=== PATIENT | female | born 2005 | race Two or more races ===

== ENCOUNTER 2024-03-14 15:23 | Emergency (ER) | payer MEDICAID, SELFPAY ==
[2024-03-14] VITALS (17 sets, daily range): BP systolic 103–127; BP diastolic 53–72; PULSE 88–120; RESP 13–21; TEMP 36.6–37.3; O2SAT 99–100; BMI 36.6
--- NOTE | 2024-03-14 15:41 | XR_ITS ---
Examination: Pelvic ultrasound, transabdominal, complete Technique: Transabdominal ultrasound of the pelvis performed using grayscale imaging Date and time of exam: March 14, 2024 1610 hrs. Indications: Vaginal bleeding beginning 3 months ago with anemia Findings: Uterus 6.9 x 4.4 x 6.4 cm No uterine mass or intrauterine gestation Endometrial stripe 17 mm Right ovary 3.3 x 2.0 x 2.9 cm arterial flow Left ovary 4.0 x 2.7 x 3.0 cm arterial flow Impression: Negative examination
--- NOTE | 2024-03-14 15:43 | PD.EDRECHK ---
ED Recheck Abnl Lab Rx-RME/HPI General Chief Complaint: Recheck/Abnormal Lab/Rx Stated Complaint: LOW HGB NEEDS TRANSFUSION Time Seen by Provider: 03/14/24 15:26 Arrival date/time: 03/14/24 15:23 RME / HPI RME / HPI narrative: 18-year-old female patient with no significant medical history, except for menometrorrhagia, and anemia, was sent to us by PCP for evaluation regarding severe anemia. Apparently patient has been having bleeding since December 28, saw her PCP and was given medications which according to her is not working. Went back again last Saturday, and was given Provera which the patient took the second dose this morning. Bleeding is now getting less. Patient denies any pelvic pain or abdominal pain. Patient complained of easy fatigability, and dizziness on sudden positional change and exertion. No medication was taken prior to arrival for anemia. Patient was told that her hemoglobin last Saturday was 4.8. Related Data Previous Rx's ?Medication ?Instructions ?Recorded ferrous sulfate 324 mg (65 mg 324 mg PO TID #90 tabs 03/14/24 iron) tablet,delayed release Allergies Allergy/AdvReac Type Severity Reaction Status Date / Time No Known Allergies Allergy Verified 03/14/24 15:25 Review of Systems Review of Systems Narrative Review of Systems: Review of system reviewed and within normal limits except mentioned in HPI ED Exam Narrative Physical exam: VITAL SIGNS: Reviewed. GENERAL APPEARANCE: Alert and interactive, follows commands, no acute distress, HEAD AND FACE: Non-traumatic. ENT: PERRL, pale conjunctiva, eyelid no trauma, Mucous membrane moist. NECK: Supple, nontender, no nuchal rigidity. CHEST: No tenderness, no crepitus, no paradoxical movement, no retractions. LUNGS: Clear, well ventilated, symmetric, no rales, no wheezing, no ronchi, no stridor, good breath sounds bilaterally. HEART: Regular rate, regular rhythm, no murmur, no gallops. ABDOMEN: Soft, positive bowel sounds, nondistended, no guarding, nontender, no rebound, no masses, RECTAL: Deferred. GENITAL: Deferred. NEUROLOGICAL: Gross motor function intact sensory function intact, Appropriate for age. MUSCULOSKELETAL: low back nontender, full range of motion. EXTREMITIES: Nontender, full range of motion. SKIN: Color pale, dry, no rash, no lacerations, no abrasions, no contusions. LYMPHATICS: Deferred. Course Quality Measures none Orders Category Date Time Status Insert IV NOW Care 03/14/24 16:09 Active Transfuse,blood/blood products ONCE Care 03/14/24 15:41 Active US pelvic complete Stat Exams 03/14/24 15:41 Completed CBC [CBC] Stat Lab 03/14/24 15:55 Completed CMP [Comprehensive Metabolic Panel] Stat Lab 03/14/24 15:55 Completed HCG Qualitative,Urine Stat Lab 03/14/24 17:52 Completed PTT [Partial Thromboplastin Time] Stat Lab 03/14/24 16:38 Completed Path Review Blood Smear Stat Lab 03/14/24 15:55 Completed Type and Screen Stat Lab 03/14/24 15:55 Results UA, C/S IF [Urinalysis, C/S if Indicated] Stat Lab 03/14/24 17:52 Completed prbc [Red Blood Cells] Stat Lab 03/14/24 15:55 Results Acetaminophen Tab [Tylenol ES Tab] Med 03/14/24 20:14 Discontinued 1,000 mg PO X1 ONE Vital Signs Vital signs: Vital Signs Temperature 98.5 F 03/14/24 15:36 Pulse Rate 120 H 03/14/24 15:36 Respiratory Rate 18 03/14/24 15:36 Blood Pressure 115/72 03/14/24 15:36 Pulse Oximetry (%) 99 03/14/24 15:36 Oxygen Delivery Method Room Air 03/14/24 15:36 Recheck / Abnormal Lab / Rx MDM Narrative MDM Narrative:: 18-year-old female patient with no significant medical history, except for menometrorrhagia, and anemia, was sent to us by PCP for evaluation regarding severe anemia. Apparently patient has been having bleeding since December 28, saw her PCP and was given medications which according to her is not working. Went back again last Saturday, and was given Provera which the patient took the second dose this morning. Bleeding is now getting less. Patient denies any pelvic pain or abdominal pain. Patient complained of easy fatigability, and dizziness on sudden positional change and exertion. No medication was taken prior to arrival for anemia. Patient was told that her hemoglobin last Saturday was 4.8. Patient's hemoglobin today was noted to be 4.6, hematocrit of 17.2. Patient received 3 units of packed RBC, tolerating the procedure well. Currently patient is denying any complaints. Patient appears nontoxic and hemodynamically stable. Patient discharged home and instructed to follow-up with primary care provider in 24 to 48 hours. Instructed to return to the emergency department immediately if worsening of symptoms Patient data External records reviewed:: None Clinical information provided by:: patient and family Social determinants that could affect healthcare access:: none Patient has the following chronic illnesses:: Menometrorrhagia, anemia How is presenting disease/condition affected by chronic disease/condition?: exacerbated by Evaluation data The following diagnostics were reviewed and interpreted by me:: lab results Lab and/or radiology exams considered but not ordered:: None Interpretation Summary: Hemoglobin was noted to be 4.6, hematocrit of 17.2 urinalysis no UTI. Ultrasound of the pelvis is negative for any acute pathology Medications / Prescriptions Medications or Prescriptions considered but not ordered:: None Medication administrations:: Medication Administration History Discontinued Medications Acetaminophen (Acetaminophen 500 Mg Tablet) 1,000 mg PO X1 ONE Stop: 03/14/24 20:15 Last Admin: 03/14/24 20:17 Dose: 1,000 mg Documented By: KG Blood transfusion x 3 bags with no complication noted. Consultations Consultation(s) initiated? (list below): No Diagnosis Recheck Differential Diagnosis: other (Anemia, severe anemia, menometrorrhagia) Most likely diagnosis given after review of the tests above:: Severe anemia, menometrorrhagia Admission Indicated Admission indicated?: not indicated Explain why admission is indicated or not indicated:: Stable for discharge Admission Request Was there a request for admission?: No Disposition Plan Disposition Plan: Discharge Discharge Attestation Discharge Attestation: The patient and all family members were given an opportunity to ask questions and understood the discharge instructions. Discharge instructions specifically effects, indications for sooner follow up or return to the emergency department, and the expected course of current diagnosis. Patient condition: Stable Discharge Plan Plan Patient Disposition: HOME (Self Care) Disposition Comment: stable Prescriptions/Referrals Prescriptions/Med Rec: New ferrous sulfate 324 mg (65 mg iron) tablet,delayed release (DR/EC) 324 mg PO TID Qty: 90 0RF Referrals: Gutierrez Chase MD [Primary Care Provider] - In 1 week Problem List Clinical Impression: Severe anemia, Menometrorrhagia Patient/Caregiver Discharge Instructions Discharge Activity: activity as tolerated Education Materials: Anemia, Iron Supplements Additional Instructions: Thank you for the opportunity for serving you today. You are stable for discharged . You are advised to: Follow-up with your PCP in 1 to 2 days Return to ED for worsening of symptoms Increase oral fluids Take medication as prescribed Print Language: Mauritanian Stand Alone Forms: Veda Award Info., Patient Portal Info Letter PA/ROXI Supervising Physician PA/ROXI Supervising Physician: MD Betzaida
[2024-03-14 16:07] LABS: Basophils # (Auto) 0.1 Thou/mm3 (0.0-0.2); Basophils % (Auto) 1 % (0-2.5); Eosinophils # (Auto) 0.1 Thou/mm3 (0.0-0.5); Eosinophils % (Auto) 1 % (0-10); Immature Granulocytes % (Auto) 1 % (0-0); Immature Granulocytes Auto 0.07 Thou/mm3 (0.00-0.00); Lymphocytes # (Auto) 2.9 Thou/mm3 (1.0-4.8); Lymphocytes % (Auto) 33 % (10-50); Mean Corpuscular HGB Conc 26.7 g/dl (31.0-37.0); Mean Corpuscular Hemoglobin 15.6 pg (25.0-35.0); Mean Corpuscular Volume 58 fL (80-100); Monocytes # (Auto) 0.5 Thou/mm3 (0.0-0.8); Monocytes % (Auto) 6 % (0-12); Neutrophils # (Auto) 5.3 Thou/mm3 (1.8-7.7); Neutrophils % (Auto) 59 % (37-80); Nucleated Red Blood Cell # 0.11 Thou/mm3 (0.00-0.00); Nucleated Red Blood Cell % 1 /100 WBC (0); Platelet Count 358 Thou/mm3 (140-440); RDW Standard Deviation 40.3 fL (36.4-46.3); Red Blood Count 2.95 Miln/mm3 (4.00-5.20)
--- NOTE | 2024-03-14 16:10 | PC.NURSE ---
ultrasound at bedside
[2024-03-14 16:39] LABS: Anion Gap 9 (7-16); Aspartate Amino Transferase 26 U/L (0-34); BUN/Creatinine Ratio 11 Ratio (12-20); Bilirubin,Total 0.5 mg/dL (0.3-1.2); Blood Urea Nitrogen 10 mg/dL (9-23); Calcium 9.2 mg/dL (8.3-10.6); Chloride 104 mMol/L (98-107); Creatinine (Component) 0.9 mg/dL (0.6-1.3); Estimated Creatinine Clearance 116.7 mL/min (>60); Glucose 102 mg/dL (74-106); Osmolality,Calculated 270 (275-295); Potassium 3.8 mMol/L (3.4-5.1); Sodium 136 mMol/L (136-145); eGFR > 60 See Note
[2024-03-14 16:40] LABS: Alanine Aminotransferase < 7 U/L (10-49); Albumin, Serum 4.7 gm/dL (3.5-5.0); Albumin/Globulin Ratio 1.6 (1.2-2.2); Alkaline Phosphatase 90 U/L (46-116); Calcium (Corrected) 9.2 mg/dL (8.5-10.1); Total Protein 7.7 gm/dL (5.7-8.2)
--- NOTE | 2024-03-14 17:10 | PC.NURSE ---
PT CAME IN WITH C/O LOW HBG. PT STATES THAT SHE HAS HAD VAGINAL BLEEDING SINCE AND HAS SEEN HER PRIMARY A FEW TIMES FOR THIS ISSUE. SHE WAS GIVEN PROVERA 2 DAYS AGO AND HAD BLOOD WORK DONE. PT WAS TOLD BY HER PMD TO COME IN TO ER FOR BLOOD TRANSFUSION. PT IS PALE AND REPORT SOB ON EXERTION. NO REPORTS OF DIZZINESS. PT STATES THAT HER VAGINAL BLEEDING HAS GOTTEN BETTER AFTER STARTING THE PROVERA.
[2024-03-14 17:22] LABS: Hematocrit 17.2 % (36.0-46.0); Hemoglobin 4.6 g/dL (12.0-16.0)
[2024-03-14 17:51] LABS: Path Review Blood Smear Sent to Pathologist
[2024-03-14 18:02] LABS: Collection Type, Urine Clean Catch
[2024-03-14 18:17] LABS: Bacteria,Urine Rare; Bilirubin,Urine Negative (Negative); Blood,Urine 3+ (Negative); Clarity,Urine Turbid (Clear/Hazy); Color,Urine Lt-Yellow (Lt Yel-Yel); Culture Indicated,Urine Not Indicated; Glucose, Urine Negative (Negative); Ketones,Urine Negative (Negative); Leukocyte Esterase,Urine Positive (Negative); Nitrite,Urine Negative (Negative); Protein,Urine Negative (Neg - Trace); RBC,Urine 4 /hpf (0-3); Specific Gravity,Urine 1.015 (1.001-1.035); Squamous Epithelial Cell,Urine 12 /hpf (0-5); Urobilinogen,Urine Negative mg/dL (0.0-1.0); WBC,Urine 10 /hpf (0-5)
[2024-03-14 18:27] LABS: HCG Qualitative,Urine Negative
--- NOTE | 2024-03-14 20:13 | PC.NURSE ---
Pt just finished 1st unit of blood and temperature noted to be at 99.2, increased from 98.3 and 98.5 earlier. Informed ordering provider CASTING SORTER Angelina Gates, verbal order received for tylenol and to continue ordered transfusions.
[2024-03-14] MEDS: ACETAMINOPHEN 500 MG TABLET 1000 MG PO (20:17)
[2024-03-15 00:40] VITALS: BP 104/59; PULSE 86; RESP 15; TEMP 36.9; O2SAT 100
[2024-03-15 01:29] VITALS: BP 114/57; PULSE 99; RESP 14; TEMP 36.8; O2SAT 100
== END 2024-03-15 01:43 | disposition home or self-care (01) ==
PROVIDERS: Nurse Practitioner Family; Emergency Provider Emergency Medicine; PCP Family Medicine
DX: D64.9 Anemia, unspecified (principal); N92.1 Excessive and frequent menstruation with irregular cycle
CPT/HCPCS: 36415; 36430; 76856; 80053; 81001; 81025; 85025; 85730; 86850; 86900; 86901; 86923; 99285; P9016; A9270

== ENCOUNTER 2024-03-17 20:09 | Emergency (ER) | payer MEDICAID, SELFPAY ==
[2024-03-17 20:10] VITALS: BMI 36.6
--- NOTE | 2024-03-17 20:11 | EKG_ITS ---
[facility] Test Date: 2024-03-17 Pat Name: MARCO CHOWDHURY Department: Room: - Gender: Female [employer]: : 2005 Requested By: Sherif Mera Order Number: [id number] Reading MD: Sherif Mera Measurements Intervals [place] Rate: 81 P: 55 UT: 150 QRS: 52 QRSD: 86 T: 25 QT: 337 QTc: 393 Interpretive Statements SINUS RHYTHM No previous ECG available for comparison /store/S0/[id number]/ecg/[id number].pdf
[2024-03-17 20:30] VITALS: BP 121/72; PULSE 87; RESP 18; TEMP 36.9; O2SAT 99
--- NOTE | 2024-03-17 20:40 | XR_ITS ---
Examination: PA chest single view Technique: Upright PA chest single view Exam date and time: March 17, 20242052 hrs. Indications: Chest pain today. Findings: Normal heart size Lungs are clear The osseous structures are intact Impression: No active disease
--- NOTE | 2024-03-17 20:41 | PD.EDRME ---
Rapid Medical Screening Exam E Arrival date/time: 03/17/24 20:09 18F with no known PMH presents to ED with several days of CP and N/V after she had 3 units here several days ago for severe anemia. Patient denies ab pain and URI symptoms. Chief Complaint: Chest Pain Vital signs: Vital Signs Temperature 98.5 F 03/17/24 20:30 Pulse Rate 87 03/17/24 20:30 Respiratory Rate 18 03/17/24 20:30 Blood Pressure 121/72 03/17/24 20:30 Pulse Oximetry (%) 99 03/17/24 20:30 Oxygen Delivery Method Room Air 03/17/24 20:30
[2024-03-17] MEDS: ONDANSETRON ODT 4 MG TABRAP PO (21:00)
[2024-03-17 21:42] LABS: Basophils # (Auto) 0.1 Thou/mm3 (0.0-0.2); Basophils % (Auto) 1 % (0-2.5); Eosinophils # (Auto) 0.1 Thou/mm3 (0.0-0.5); Eosinophils % (Auto) 1 % (0-10); Hematocrit 28.3 % (36.0-46.0); Immature Granulocytes % (Auto) 0 % (0-0); Immature Granulocytes Auto 0.04 Thou/mm3 (0.00-0.00); Lymphocytes # (Auto) 2.9 Thou/mm3 (1.0-4.8); Lymphocytes % (Auto) 28 % (10-50); Mean Corpuscular HGB Conc 30.4 g/dl (31.0-37.0); Mean Corpuscular Hemoglobin 20.4 pg (25.0-35.0); Mean Corpuscular Volume 67 fL (80-100); Monocytes # (Auto) 0.6 Thou/mm3 (0.0-0.8); Monocytes % (Auto) 5 % (0-12); Neutrophils # (Auto) 6.8 Thou/mm3 (1.8-7.7); Neutrophils % (Auto) 65 % (37-80); Nucleated Red Blood Cell % 0 /100 WBC (0); Platelet Count 435 Thou/mm3 (140-440); Red Blood Count 4.21 Miln/mm3 (4.00-5.20); White Blood Count 10.5 Thou/mm3 (4.5-11.0)
[2024-03-17 21:49] LABS: Hemoglobin 8.6 g/dL (12.0-16.0)
[2024-03-17 22:02] LABS: Partial Thromboplastin Time 25.8 Seconds (22.0-36.0); Prothrombin Time 10.6 Seconds (9.0-12.2)
[2024-03-17 22:05] LABS: Alanine Aminotransferase < 7 U/L (10-49); Albumin, Serum 4.7 gm/dL (3.5-5.0); Albumin/Globulin Ratio 1.6 (1.2-2.2); Alkaline Phosphatase 91 U/L (46-116); Anion Gap 6 (7-16); Aspartate Amino Transferase 13 U/L (0-34); BUN/Creatinine Ratio 14 Ratio (12-20); Bilirubin,Total 0.5 mg/dL (0.3-1.2); Blood Urea Nitrogen 10 mg/dL (9-23); Chloride 107 mMol/L (98-107); Creatinine (Component) 0.7 mg/dL (0.6-1.3); Globulin 2.9 gm/dL (2.3-3.5); Glucose 102 mg/dL (74-106); Lipase 49 U/L (12-53); Osmolality,Calculated 274 (275-295); Potassium 3.6 mMol/L (3.4-5.1); Sodium 138 mMol/L (136-145); Total Protein 7.6 gm/dL (5.7-8.2); Troponin I < 0.020 ng/mL (0.0-0.045); eGFR > 60 See Note
--- NOTE | 2024-03-17 22:31 | EDNOTE_ITS ---
ED General RME/HPI General Chief complaint: Chest Pain Stated complaint: CHEST PAIN X3 DAYS, NAUSEA, SOB Time Seen by Provider: 03/17/24 22:30 Arrival date/time: 03/17/24 20:09 CC: Chest pain HPI ongoing intermittent for the past 3 days did not wake her up at nighttime currently absent, patient states he center anterior chest ache. Onset after getting a transfusion of 2 units of blood. The patient has severe anemia secondary to heavy menses. Patient denies shortness of breath difficulty breathing fever chills. RME / HPI RME / HPI narrative: 03/17/24 20:09 18F with no known PMH presents to ED with several days of CP and N/V after she had 3 units here several days ago for severe anemia. Patient denies ab pain and URI symptoms. Related Data Previous Rx's ?Medication ?Instructions ?Recorded ferrous sulfate 324 mg (65 mg 324 mg PO TID #90 tabs 03/14/24 iron) tablet,delayed release Allergies Allergy/AdvReac Type Severity Reaction Status Date / Time No Known Allergies Allergy Verified 03/14/24 15:25 Review of Systems Review of Systems Narrative Review of Systems: GEN: No fever, no chills, no weight loss EYES: No discharge, no visual changes, no pain HEENT: No ear pain, no congestion, no sore throat PULM: No shortness of breath, no cough, no congestion CV: + chest pain, no dyspnea on exertion, no palpitations GI: No nausea, no vomiting, no diarrhea, no pain, no constipation : No frequency, no urgency, no dysuria MUSC/SKEL: No joint pain, no back pain SKIN: No rash PSYCH: No hallucinations, no depression HEME/LYMPH: No easy bleeding or bruising tendencies NEURO: No weakness, no headache Past Medical History Past Medical History CARDIAC: Negative Congestive Heart Failure RESPIRATORY: Negative Chronic Obstructive Pulmonary Disease (COPD) GENITOURINARY: Negative Renal Disease ENDOCRINE: Negative Diabetes Mellitus Type 1 or Diabetes Mellitus Type 2 Social History SMOKING STATUS: Never smoker ED Exam Narrative Physical exam: [General: Obese not in any acute distress Head normocephalic HEENT: Within acceptable limits Neck is supple nontender Chest equal chest rise nontender to palpation Respiratory: Clear to auscultation no wheezes crackles or rubs CV: Rate rhythm is regular no murmurs rubs or clicks Abdomen is distended secondary to body habitus soft nontender no masses positive bowel sounds all 4 quadrants Back: No CVA tenderness no spinous process tenderness from cervical spine thoracic and lumbar spine Skin: Pale, intact no petechiae rash induration ulceration or crepitus Extremities: Moving all extremity against resistance cap refill less than 2 seconds neurosensory intact Neuro: Awake alert oriented x3 Glascow coma 15 no focal deficits] Course Quality Measures none Orders Category Date Time Status EKG (ED ONLY) *Do not use* NOW Care 03/17/24 20:11 Completed EKG (ED Only) Stat Exams 03/17/24 20:11 Draft XR chest 1V portable Stat Exams 03/17/24 20:40 Completed CBC Stat Lab 03/17/24 21:07 Completed Comprehensive Metabolic Panel Stat Lab 03/17/24 21:07 Completed Lipase Stat Lab 03/17/24 21:07 Completed Partial Thromboplastin Time Stat Lab 03/17/24 21:07 Completed Prothrombin Time with INR Stat Lab 03/17/24 21:07 Completed Troponin I Stat Lab 03/17/24 21:07 Completed Ondansetron Odt [Zofran Odt] Med 03/17/24 20:41 Discontinued 4 mg PO X1 ONE Vital Signs Vital signs: Vital Signs Temperature 98.5 F 03/17/24 20:30 Pulse Rate 87 03/17/24 20:30 Respiratory Rate 18 03/17/24 20:30 Blood Pressure 121/72 03/17/24 20:30 Pulse Oximetry (%) 99 03/17/24 20:30 Oxygen Delivery Method Room Air 03/17/24 20:30 [facility] Patient data External records reviewed:: [facility] previous records Clinical information provided by:: patient Social determinants that could affect healthcare access:: none Patient has the following chronic illnesses:: Dysmenorrhea, anemia How is presenting disease/condition affected by chronic disease/condition?: u neffected by Evaluation data The following diagnostics were reviewed and interpreted by me:: lab results and EKG tracing(s) Lab and/or radiology exams considered but not ordered:: CBC shows no thrombocytopenia anemia with a hemoglobin of 8.6 which is an improvement from the last at 4.9, no thrombocytopenia Coags are within acceptable limits CMP shows no acute electrolyte imbalances renal impairment transaminitis or T. bili elevation. Troponin is negative Interpretation Summary: Anemia, the chest pain I believe is psychosomatic and not necessarily related. Patient will be discharged home. Medications Medications considered but not ordered:: None Medication administrations:: Medication Administration History Discontinued Medications Ondansetron HCl (Ondansetron Odt 4 Mg Tabrap) 4 mg PO X1 ONE; Protocol Stop: 03/17/24 20:42 Last Admin: 03/17/24 21:00 Dose: 4 mg Documented By: KF None Consultations Consultation(s) initiated? (list below): No Diagnosis Differential Diagnosis ED Complaint MDM: Chest pain anemia dysmenorrhagia Most likely diagnosis given after review of the tests above:: Chest pain Admission Indicated Admission indicated?: not indicated Explain why admission is indicated or not indicated:: Stable for outpatient follow-up Admission Request Was there a request for admission?: No Disposition Plan Disposition Plan: Discharge Discharge Attestation Discharge Attestation: The patient and all family members were given an opportunity to ask questions and understood the discharge instructions. Discharge instructions specifically effects, indications for sooner follow up or return to the emergency department, and the expected course of current diagnosis. Patient condition: Stable Medical Decision Making Differential Diagnosis Differential Diagnosis: Chest pain anemia dysmenorrhagia Lab Data 03/17/24 21:07 03/17/24 21:07 Labs: Lab Results 03/17/24 Range/Units 21:07 WBC 10.5 (4.5-11.0) Thou/mm3 RBC 4.21 (4.00-5.20) Miln/mm3 Hgb 8.6 L D (12.0-16.0) g/dL Hct 28.3 L D (36.0-46.0) % MCV 67 L (80-100) fL MCH 20.4 L (25.0-35.0) pg MCHC 30.4 L (31.0-37.0) g/dl RDW Std Deviation 64.0 H (36.4-46.3) fL Plt Count 435 D (140-440) Thou/mm3 Neut % (Auto) 65 (37-80) % Lymph % (Auto) 28 (10-50) % [place] % (Auto) 5 (0-12) % Eos % (Auto) 1 (0-10) % Baso % (Auto) 1 (0-2.5) % Neut # (Auto) 6.8 (1.8-7.7) Thou/mm3 Lymph # (Auto) 2.9 (1.0-4.8) Thou/mm3 [place] # (Auto) 0.6 (0.0-0.8) Thou/mm3 Eos # (Auto) 0.1 (0.0-0.5) Thou/mm3 Baso # (Auto) 0.1 (0.0-0.2) Thou/mm3 Immature Gran # (Auto) 0.04 H (0.00-0.00) Thou/mm3 Absolute Nucleated RBC 0.00 (0.00-0.00) Thou/mm3 Immature Gran % 0 (0-0) % Nucleated RBC % 0 (0) /100 WBC PT 10.6 (9.0-12.2) Seconds INR 1.0 (0.9-1.3) APTT 25.8 (22.0-36.0) Seconds Sodium 138 (136-145) mMol/L Potassium 3.6 (3.4-5.1) mMol/L Chloride 107 (98-107) mMol/L Carbon Dioxide 25.0 (20.0-31.0) mMol/L Anion Gap 6 L (7-16) BUN 10 (9-23) mg/dL Creatinine 0.7 (0.6-1.3) mg/dL Estim Creat Clear Calc 150.0 (>60) mL/min eGFR > 60 (60 - ) See Note BUN/Creatinine Ratio 14 (12-20) Ratio Glucose 102 (74-106) mg/dL Calculated Osmolality 274 L (275-295) Calcium 10.0 (8.3-10.6) mg/dL Corrected Calcium 10.0 (8.5-10.1) mg/dL Total Bilirubin 0.5 (0.3-1.2) mg/dL AST 13 (0-34) U/L ALT < 7 L (10-49) U/L Alkaline Phosphatase 91 (46-116) U/L Troponin I < 0.020 (0.0-0.045) ng/mL Total Protein 7.6 (5.7-8.2) gm/dL Albumin 4.7 (3.5-5.0) gm/dL Globulin 2.9 (2.3-3.5) gm/dL Albumin/Globulin Ratio 1.6 (1.2-2.2) Lipase 49 (12-53) U/L Discharge Plan Plan Patient Disposition: HOME (Self Care) Patient condition on transfer: Stable Prescriptions/Referrals Prescriptions/Med Rec: No Action ferrous sulfate 324 mg (65 mg iron) tablet,delayed release (DR/EC) 324 mg PO TID Qty: 90 0RF Referrals: Gutierrez Chase MD [Primary Care Provider] - In 1 week Problem List Clinical Impression: Chest pain Patient/Caregiver Discharge Instructions Education Materials: ED Chest Pain, Uncertain Cause Additional Instructions: Follow-up with your primary care provider if there is worsening symptoms spite of medications return the emergency room for further evaluation. Print Language: Upper Sorbian Stand Alone Forms: Veda Award Info., Patient Portal Info Letter, Work/School Release PA/SUPERVISOR STAGE CARPENTRY Supervising Physician PA/SUPERVISOR STAGE CARPENTRY Supervising Physician: Kiko Lisa ENP
[2024-03-18 02:46] LABS: Path Review Blood Smear Sent to Pathologist
== END 2024-03-17 22:42 | disposition home or self-care (01) ==
PROVIDERS: Physician Assistant; Emergency Provider Emergency Medicine; PCP Family Medicine
DX: R07.89 Other chest pain (principal)
CPT/HCPCS: 36415; 71045; 80053; 83690; 84484; 85025; 85610; 85730; 93005; 99283; Q0162

== ENCOUNTER 2024-09-27 23:26 | Day surgery (SDC) | payer MEDICAID, SELFPAY ==
[2024-09-27 23:29] VITALS: BMI 38.2
[2024-09-27 23:48] VITALS: BP 141/93; PULSE 93; RESP 16; TEMP 37.1; O2SAT 99
--- NOTE | 2024-09-27 23:56 | PD.EDVAGBL ---
ED OB Contraction Preg RMI/HPI General Chief complaint: Vaginal Bleeding Stated complaint: LOW ABD CRAMPING VAG BLEEDING Time Seen by Provider: 09/27/24 23:43 Arrival date/time: 09/27/24 23:26 RME / HPI RME / HPI Narrative: This section includes all my notes and documentations, including HPI, PE, and ED course. Gurjit Huston MD HPI: 18 y/o female with Hx of Anemia presents with vaginal bleeding x approximately 1 month and severe lower abdominal pain x approximately 12 hours. Has severe nausea and anorexia. No fever. No other complaints. ROS: All negative except as documented in HPI. Physical Exam: General: Alert and oriented. In obvious pain. Eyes: Conjunctivae and lids clear. ENT: No nasal congestion. Neck: Supple. Heart: RRR. Lungs: No respiratory distress. Good air movement. No rhonchi, wheezing, rales. Abdomen: Soft with lower quadrant tenderness. Decreased bowel sounds. No distension. No rebound or guarding. Back: No CVA tenderness. Skin: Warm and dry. Neuro: Alert and oriented X 3. I reviewed all diagnostic test results: My review of the US report is: NAD. My review of the CT report is: Appendicitis. Blood tests remarkable for WBC 11.9. UA showed positive leukocyte esterase, 1909 RBC, 264 WBC, and 1+ bacteria. At this point, diagnoses include: Appendicitis and UTI. Treatment here included: IV fluid, Toradol 30 mg IV, Zofran 4 mg IV, Rocephin 1 g IV, and Flagyl 500 mg IV. I discussed the case with our surgeon, Dr. Roberts. About the presentation and exam and diagnostics and treatments here. And need of further care in the hospital. Will accept the patient. Gurjit Huston MD Related Data Previous Rx's ?Medication ?Instructions ?Recorded ferrous sulfate 324 mg (65 mg 324 mg PO TID #90 tabs 03/14/24 iron) tablet,delayed release docusate sodium 100 mg capsule 100 mg PO BID #40 caps 09/28/24 (Colace) hydrocodone 5 mg-acetaminophen 325 1 tab PO Q6H PRN pain (scale score 09/28/24 mg tablet 7-10) #10 tabs ibuprofen 600 mg tablet 600 mg PO Q8H PRN pain (scale 09/28/24 score 4-6) #15 tabs hydrocodone 5 mg-acetaminophen 325 1 tab PO BID PRN pain #10 tabs 09/30/24 mg tablet Allergies Allergy/AdvReac Type Severity Reaction Status Date / Time No Known Allergies Allergy Verified 09/27/24 23:34 Review of Systems Review of Systems Systems Reviewed: All systems reviewed, normal except as documented Past Medical History Past Medical History HEMATOLOGIC: Positive Anemia ED Exam Narrative Physical exam: Refer to HPI Course Quality Measures none Orders Category Date Time Status Patient Condition Routine Admission 09/28/24 07:[address] in Surgical Day Care Routine Admission 09/28/24 07:05 Active COVID-19 Screening Questionnaire NOW Care 09/28/24 04:24 Completed Consent [Obtain Written Consent For:] .NOW Care 09/28/24 07:05 Completed Decision to Admit X1 Care 09/28/24 04:24 Completed Intake and Output QSHIFT Care 09/28/24 07:15 Ordered Notify provider NEEDED Care 09/28/24 07:05 Completed Saline [Insert IV] NOW Care 09/28/24 00:00 Completed Consult to General Surgery Stat Cons 09/28/24 04:24 Ordered Discharge Routine Discharge 09/28/24 08:[address] abdomen pelvis wo con Stat Exams 09/28/24 00:01 Completed US transvaginal Stat Exams 09/28/24 00:01 Completed Bilirubin,Direct Stat Lab 09/28/24 00:15 Completed CBC Stat Lab 09/28/24 00:15 Completed CMP [Comprehensive Metabolic Panel] Stat Lab 09/28/24 00:15 Completed Free T4 (Free Thyroxine) Stat Lab 09/28/24 00:15 Completed HCG,Qualitative Serum Stat Lab 09/28/24 00:15 Completed Magnesium Stat Lab 09/28/24 00:15 Completed PT [Prothrombin Time with INR] Stat Lab 09/28/24 00:15 Completed PTT [Partial Thromboplastin Time] Stat Lab 09/28/24 00:15 Completed TSH [Thyroid Stimulating Hormone] Stat Lab 09/28/24 00:15 Completed Type and Screen Stat Lab 09/28/24 00:15 Completed UA, C/S IF [Urinalysis, C/S if Indicated] Stat Lab 09/28/24 00:55 Completed Urine Culture Stat Lab 09/28/24 00:55 Completed Acetaminophen Ivpb [Ofirmev Inj] 100 ml Med 09/28/24 07:46 Discontinued IV .STK-MED Acetaminophen Tab [Tylenol Tab] Med 09/28/24 07:05 Discontinued 650 mg PO Q6H PRN Bupivacaine Mpf 0.5% [Sensorcaine-Mpf Inj 0.5%] Med 09/28/24 07:18 Discontinued 30 ml .ROUTE .STK-MED ONE Cefoxitin [Mefoxin Inj] Med 09/28/24 07:40 Discontinued 1 gm .ROUTE .STK-MED ONE Cefoxitin [Mefoxin Inj] Med 09/28/24 07:51 Discontinued 1 gm .ROUTE .STK-MED ONE Dexamethasone Inj [Decadron Inj] Med 09/28/24 07:34 Discontinued 10 mg .ROUTE .STK-MED ONE HYDROmorphone INJ [Dilaudid Inj] Med 09/28/24 08:22 Discontinued 0.5 mg IVP Q10MIN PRN Ketorolac Inj [Toradol Inj] Med 09/28/24 00:00 Discontinued 30 mg IVP X1 ONE Ketorolac Inj [Toradol Inj] Med 09/28/24 08:24 Discontinued 30 mg IVP X1 PRN Lidocaine 1% Pf 2 ml [Xylocaine Pf 1% 2 ml] Med 09/28/24 07:46 Discontinued 2 ml .ROUTE .STK-MED ONE Meperidine Inj [Demerol Inj] Med 09/28/24 08:22 Discontinued 12.5 mg IVP Q5M PRN Metoclopramide Inj [Reglan Inj] Med 09/28/24 08:24 Discontinued 10 mg IVP X1 PRN Midazolam Inj [Versed Inj] Med 09/28/24 08:22 Discontinued 1 mg IVP Q5MIN PRN Ondansetron Inj [Zofran Inj] Med 09/28/24 08:10 Discontinued 4 mg .ROUTE .STK-MED ONE Ondansetron Inj [Zofran Inj] Med 09/28/24 07:05 Discontinued 4 mg IVP Q6H PRN Ondansetron Inj [Zofran Inj] Med 09/28/24 00:00 Discontinued 4 mg IVP X1 ONE Propofol Inj [Diprivan Inj] Med 09/28/24 07:33 Discontinued 200 mg IV .STK-MED ONE Rocuronium Inj [Zemuron Inj] Med 09/28/24 07:33 Discontinued 100 mg .ROUTE .STK-MED ONE Sodium Chloride 0.9% 1000 ml [Ns] 1,000 ml Med 09/28/24 00:00 Discontinued IV 999 mls/hr Sugammadex Inj [Bridion Inj] Med 09/28/24 08:09 Discontinued 200 mg .ROUTE .STK-MED ONE cefTRIAXone/D5w 1gm IV premix [Rocephin/D5w 1gm IV Med 09/28/24 02:08 Discontinued premix] 1 gm in 50 ml IV X1 fentaNYL INJ [Sublimaze Inj] Med 09/28/24 07:34 Discontinued 100 mcg .ROUTE .STK-MED ONE fentaNYL INJ [Sublimaze Inj] Med 09/28/24 08:00 Discontinued 100 mcg .ROUTE .STK-MED ONE fentaNYL INJ [Sublimaze Inj] Med 09/28/24 08:22 Discontinued 50 mcg IVP Q5MIN PRN hydrALAZINE INJ [Apresoline Inj] Med 09/28/24 08:22 Discontinued 5 mg IV Q20MIN PRN metroNIDAZOLE/NS 500 MG IVPB [Flagyl 500 mg IV] Med 09/28/24 04:20 Discontinued 500 mg in 100 ml IV X1 Code Status Routine Oth 09/28/24 07:05 Completed Oxygen Delivery PRN RT 09/28/24 08:22 Completed Vital Signs Vital signs: Vital Signs Temperature 98.7 F 09/27/24 23:48 Pulse Rate 93 09/27/24 23:48 Respiratory Rate 16 09/27/24 23:48 Blood Pressure 141/93 H 09/27/24 23:48 Pulse Oximetry (%) 99 09/27/24 23:48 Oxygen Delivery Method Room Air 09/27/24 23:48 Vaginal Bleeding MDM Narrative MDM Narrative: Scribe Attestation: I, Carla Cifuentes, am scribing for and in the presence of Dr. Huston. Provider Notation: Although this document has been carefully reviewed, there may still be some phonetic and other typographical errors.? These errors are purely grammatical due to imperfections in the software program and should not be construed in any way to? compromise the substance of the patient's medical care during this visit. 18 y/o female with Hx of Anemia presents with vaginal bleeding x approximately 1 month and severe lower abdominal pain x approximately 12 hours. Has severe nausea and anorexia. No fever. No other complaints. Patient data External records reviewed:: [facility] previous records (Reviewed prior ED records from 03/17/24. Patient was seen for Chest pain.) Clinical information provided by:: patient Social determinants that could affect healthcare access:: none Patient has the following chronic illnesses:: Anemia How is presenting disease/condition affected by chronic disease/condition?: uneffected by Evaluation data The following diagnostics were reviewed and interpreted by me:: lab results and radiology exam(s) Lab and/or radiology exams considered but not ordered:: None Interpretation Summary: I reviewed all diagnostic test results: My review of the US report is: NAD. My review of the CT report is: Appendicitis. Blood tests remarkable for WBC 11.9. UA showed positive leukocyte esterase, 1909 RBC, 264 WBC, and 1+ bacteria. Medications / Prescriptions Medications or Prescriptions considered but not ordered:: None Medication administrations:: Medication Administration History Discontinued Medications Acetaminophen (Acetaminophen 325 Mg Tablet) 650 mg PO Q6H PRN PRN Reason: Fever >101.5 Stop: 10/28/24 07:04 Bupivacaine HCl (Bupivacaine Mpf 0.5% 30 Ml Vial) Confirm Administered Dose 30 ml .ROUTE .STK-MED ONE Stop: 09/28/24 07:19 Cefoxitin Sodium (Cefoxitin Sod Inj 1 Gm Vial) Confirm Administered Dose 1 gm .ROUTE .STK-MED ONE Stop: 09/28/24 07:41 Cefoxitin Sodium (Cefoxitin Sod Inj 1 Gm Vial) Confirm Administered Dose 1 gm .ROUTE .STK-MED ONE Stop: 09/28/24 07:52 Dexamethasone Sodium Phosphate (Dexamethasone Sod Phos Inj 10 Mg/Ml Vial) Confirm Administered Dose 10 mg .ROUTE .STK-MED ONE Stop: 09/28/24 07:35 Fentanyl Citrate (Fentanyl Cit Inj 50 Mcg/Ml Amp 2ml) Confirm Administered Dose 100 mcg .ROUTE .STK-MED ONE Stop: 09/28/24 07:35 Fentanyl Citrate (Fentanyl Cit Inj 50 Mcg/Ml Amp 2ml) Confirm Administered Dose 100 mcg .ROUTE .STK-MED ONE Stop: 09/28/24 08:01 Fentanyl Citrate (Fentanyl Cit Inj 50 Mcg/Ml Amp 2ml) 50 mcg IVP Q5MIN PRN PRN Reason: PAIN SCALE 4-10(Mod-Sev Stop: 09/28/24 10:23 Last Admin: 09/28/24 08:56 Dose: 50 mcg Documented By: Admin: 09/28/24 08:47 Dose: 50 mcg Documented By: LIOT Hydralazine HCl (Hydralazine Inj 20 Mg/Ml Vial) 5 mg IV Q20MIN PRN PRN Reason: SEE COMMENTS Stop: 09/28/24 10:23 Hydromorphone HCl (Hydromorphone Inj 2 Mg/Ml Vial) 0.5 mg IVP Q10MIN PRN PRN Reason: PAIN SCALE 4-10(Mod-Sev Stop: 09/28/24 10:23 Sodium Chloride (Ns) 1,000 mls @ 999 mls/hr IV .Q1H1M ONE Stop: 09/28/24 01:00 Last Infusion: 09/28/24 02:00 Dose: Infused Documented By: Admin: 09/28/24 00:55 Dose: 999 mls/hr Documented By: BERTO Ceftriaxone Sodium/Dextrose (Rocephin/D5w 1gm Iv Premix) 1 gm in 50 mls @ 100 mls/hr IV X1 ONE Stop: 09/28/24 02:37 Last Infusion: 09/28/24 03:18 Dose: Infused Documented By: Admin: 09/28/24 02:46 Dose: 100 mls/hr Documented By: TRINIDAD Metronidazole (Flagyl 500 Mg Iv) 500 mg in 100 mls @ 100 mls/hr IV X1 ONE Stop: 09/28/24 05:19 Last Infusion: 09/28/24 05:37 Dose: Infused Documented By: Admin: 09/28/24 04:37 Dose: 100 mls/hr Documented By: BERTO Acetaminophen (Ofirmev Inj) Confirm Administered Dose 100 mls @ ud IV .STK-MED ONE Stop: 09/28/24 07:47 Ketorolac Tromethamine (Ketorolac Inj 30 Mg/Ml Vial) 30 mg IVP X1 ONE Stop: 09/28/24 00:01 Last Admin: 09/28/24 00:58 Dose: 30 mg Documented By: BERTO Ketorolac Tromethamine (Ketorolac Inj 30 Mg/Ml Vial) 30 mg IVP X1 PRN PRN Reason: PAIN SCALE 4-10(Mod-Sev Stop: 10/03/24 08:23 Last Admin: 09/28/24 09:23 Dose: 30 mg Documented By: LITO Lidocaine HCl (Lidocaine Inj Pf 1% 2 Ml Vial) Confirm Administered Dose 2 ml .ROUTE .STK-MED ONE Stop: 09/28/24 07:47 Meperidine HCl (Meperidine Inj 50 Mg/Ml Vial) 12.5 mg IVP Q5M PRN PRN Reason: SHIVERING Stop: 10/03/24 08:21 Metoclopramide HCl (Metoclopramide Inj 5 Mg/Ml Vial 2 Ml) 10 mg IVP X1 PRN; Protocol PRN Reason: NAUSEA OR VOMITING Stop: 09/28/24 10:25 Midazolam HCl (Midazolam Inj 1 Mg/Ml Vial 2 Ml) 1 mg IVP Q5MIN PRN PRN Reason: ANXIETY Stop: 09/29/24 08:21 Ondansetron HCl (Ondansetron Inj 2 Mg/Ml Inj 2 Ml) 4 mg IVP X1 ONE; Protocol Stop: 09/28/24 00:01 Last Admin: 09/28/24 01:02 Dose: Not Given Documented By: TRINIDAD Non-Admin Reason: Patient Refused Ondansetron HCl (Ondansetron Inj 2 Mg/Ml Inj 2 Ml) 4 mg IVP Q6H PRN PRN Reason: NAUSEA OR VOMITING Stop: 10/28/24 07:04 Ondansetron HCl (Ondansetron Inj 2 Mg/Ml Inj 2 Ml) Confirm Administered Dose 4 mg .ROUTE .STK-MED ONE Stop: 09/28/24 08:11 Propofol (Propofol Inj 10 Mg/Ml Vial 20 Ml) Confirm Administered Dose 200 mg IV .STK-MED ONE Stop: 09/28/24 07:34 Rocuronium Zortman (Rocuronium Inj 10 Mg/Ml Vial 10 Ml) Confirm Administered Dose 100 mg .ROUTE .STK-MED ONE Stop: 09/28/24 07:34 Sugammadex Sodium (Sugammadex Inj 100 Mg/Ml 2ml Vial) Confirm Administered Dose 200 mg .ROUTE .STK-MED ONE Stop: 09/28/24 08:10 Rocephin, Toradol, IV fluid, Flagyl, Consultations Consultation(s) initiated? (list below): Yes Consultation #1 (Physician, Specialty, Details): I discussed the case with our general surgeon, Dr. Roberts. About the presentation and exam and diagnostics and treatments here. And need of further care in the hospital. Will accept the patient. Time: 04:21 Diagnosis Vaginal Bleeding Differential Diagnosis: missed , threatened , dysfunctional uterine bleeding, menometrorrhagia, incomplete , ectopic without intrauterine , vaginal bleeding and other (Appendicitis, diverticulitis, ovarian torsion) Most likely diagnosis given after review of the tests above:: Appendicitis Admission Indicated Admission indicated?: indicated Explain why admission is indicated or not indicated:: Appendicitis Admission Request Was there a request for admission?: Yes Admission Attestation Admission request attestation: Discussed case with [] from Hospitalist service regarding admission. Discussed patients ED course, exam findings, labs, and radiology results. The Hospitalist [agrees,declines] to accept the patient for admission. Disposition Plan Disposition Plan: Admit Discharge Plan Plan Patient Disposition: Admit Acute Care w/in Hospital Problem List Clinical Impression: Appendicitis, UTI (urinary tract infection) Patient/Caregiver Discharge Instructions Discharge Activity: activity as tolerated
[2024-09-28] VITALS (9 sets, daily range): BP systolic 112–136; BP diastolic 62–79; PULSE 78–108; RESP 12–20; TEMP 36.4–36.8; O2SAT 92–99
--- NOTE | 2024-09-28 00:01 | XR_ITS ---
Examination: Transvaginal ultrasound of the pelvis, complete Technique: Transvaginal sonographic images pelvis performed using melchor scale imaging Exam date and time: September 28, 2024 0026 hours INDICATIONS: Vaginal bleeding and pelvic cramping beginning 2 months ago FINDINGS: Uterus 8.8 cm endometrial stripe 1.7 cm No uterine mass or intrauterine gestation Mild fluid in the cul-de-sac Right ovary 3.6 cm arterial flow small follicles, fluid adjacent to the right ovary Left ovary 3.3 cm arterial flow small follicles, fluid adjacent to the ovaries IMPRESSION: No uterine mass or intrauterine gestation Free fluid in the cul-de-sac and adjacent to the ovaries, consider recent rupture of an ovarian cyst as well as pelvic inflammatory disease.
--- NOTE | 2024-09-28 00:01 | XR_ITS ---
Examination: CT abdomen and pelvis without contrast. Coronal 3-D reconstructions. Sagittal 2-D reconstructions. Date and time of exam:September 28, 2024 0125 hours INDICATIONS: Lower abdominal pain vaginal bleeding beginning 3 months ago CTDI: vol (mGy): 13.2 DLP: (mGycm): 989 Technique: Axial images of the abdomen have been obtained, 3 mm slice thickness Intravenous contrast material has not been administered. Low dose protocols were performed. One or more of the following dose reduction techniques were used; automated exposure control, adjustment of the mA and/or KV according to patient size, use of iterative reconstruction technique. Findings: No focal liver or splenic lesions Contracted gallbladder No renal or ureteral calculi Small lymph nodes in the mesentery The distal appendix, coronal image 62 is fluid-filled with wall thickening and overall thickness 10 mm with possible early appendiceal inflammatory change Mild free fluid in the pelvis Thick-walled contracted urinary bladder IMPRESSION: The distal appendix is fluid-filled, wall thickening and overall thickness 10 mm with possible early appendiceal inflammatory change Recommend clinical assessment for early appendicitis
--- NOTE | 2024-09-28 00:18 | PC.NURSE ---
PT TAKEN TO ULTRASOUND VIA WHEEL CHAIR.
[2024-09-28 00:33] LABS: Basophils # (Auto) 0.1 Thou/mm3 (0.0-0.2); Basophils % (Auto) 1 % (0-2.5); Eosinophils # (Auto) 0.1 Thou/mm3 (0.0-0.5); Eosinophils % (Auto) 1 % (0-10); Immature Granulocytes % (Auto) 1 % (0-0); Immature Granulocytes Auto 0.14 Thou/mm3 (0.00-0.00); Lymphocytes # (Auto) 3.3 Thou/mm3 (1.0-4.8); Lymphocytes % (Auto) 28 % (10-50); Mean Corpuscular HGB Conc 31.5 g/dl (31.0-37.0); Mean Corpuscular Hemoglobin 22.9 pg (25.0-35.0); Mean Corpuscular Volume 73 fL (80-100); Monocytes # (Auto) 0.7 Thou/mm3 (0.0-0.8); Monocytes % (Auto) 6 % (0-12); Neutrophils # (Auto) 7.6 Thou/mm3 (1.8-7.7); Neutrophils % (Auto) 64 % (37-80); Nucleated Red Blood Cell # 0.07 Thou/mm3 (0.00-0.00); Nucleated Red Blood Cell % 1 /100 WBC (0); Platelet Count 417 Thou/mm3 (140-440); RDW Standard Deviation 39.5 fL (36.4-46.3); Red Blood Count 3.71 Miln/mm3 (4.00-5.20); White Blood Count 11.9 Thou/mm3 (4.5-11.0)
[2024-09-28 00:37] LABS: Hemoglobin 8.5 g/dL (12.0-16.0)
[2024-09-28 00:42] LABS: HCG,Qualitative Serum Negative
[2024-09-28 00:46] LABS: INR 0.9 (0.9-1.3); Partial Thromboplastin Time 28.7 Seconds (22.0-36.0); Prothrombin Time 10.2 Seconds (9.0-12.2)
[2024-09-28 00:50] LABS: Alanine Aminotransferase 21 U/L (10-49); Albumin, Serum 4.1 gm/dL (3.5-5.0); Albumin/Globulin Ratio 1.5 (1.2-2.2); Alkaline Phosphatase 105 U/L (46-116); Anion Gap 13 (7-16); BUN/Creatinine Ratio 13 Ratio (12-20); Bilirubin,Direct < 0.1 mg/dL (0.0-0.3); Bilirubin,Total 0.3 mg/dL (0.3-1.2); Blood Urea Nitrogen 9 mg/dL (9-23); Calcium 8.5 mg/dL (8.3-10.6); Calcium (Corrected) 8.5 mg/dL (8.5-10.1); Carbon Dioxide 23.3 mMol/L (20.0-31.0); Chloride 106 mMol/L (98-107); Creatinine (Component) 0.7 mg/dL (0.6-1.3); Estimated Creatinine Clearance 153.7 mL/min (>60); Free T4 (Free Thyroxine) 1.17 ng/dL (0.89-1.76); Globulin 2.7 gm/dL (2.3-3.5); Glucose 101 mg/dL (74-106); Magnesium 1.9 mg/dL (1.6-2.6); Osmolality,Calculated 281 (275-295); Potassium 3.7 mMol/L (3.4-5.1); Sodium 142 mMol/L (136-145); Thyroid Stimulating Hormone 3.19 uIU/mL (0.55-4.78); Total Protein 6.8 gm/dL (5.7-8.2); eGFR > 60 See Note
[2024-09-28] MEDS: SODIUM CHLORIDE 0.9% 1000 ML 1,000 ML 999 ML IV (00:55)
[2024-09-28] MEDS: KETOROLAC INJ 30 MG/ML VIAL IVP ×2 (00:58→09:23)
--- NOTE | 2024-09-28 01:45 | PRELIM_ITS ---
Pelvic ultrasound transvaginal) with Doppler. September 28, 2024 at 0026 hours Clinical history: Pelvic pain and bleeding. LMP unknown. HCG pending. Findings: The uterus is normal in size measuring 8.8 x 5.2 x 6.2 cm. The endometrium is thickened and measures 1.7 cm. No intrauterine gestational sac is seen at this time. The right ovary measures 3.6 x 2.7 x 2.5 cm and demonstrates follicles. The left ovary measures 3.3 x 2.4 x 3.5 cm and demonstrates follicles. Both ovaries demonstrate color flow and spectral waveforms on Doppler evaluation. No adnexal mass is demonstrated. Small amount of free fluid is demonstrates adjacent to ovaries bilaterally and in the posterior cul-de-sac. Impression: No evidence of intrauterine gestation at this time. Possibilities include very early intrauterine , recent or occult ectopic gestation. Recommend correlation with serum beta hCG and follow up. Report Electronically Signed By: Quinn Bean 09/28/2024 1:44:29 AM [EST]
[2024-09-28 01:48] LABS: Collection Type, Urine Clean Catch
[2024-09-28 02:00] LABS: Bacteria,Urine 1+; Bilirubin,Urine Negative (Negative); Blood,Urine 3+ (Negative); Clarity,Urine Turbid (Clear/Hazy); Color,Urine Brown (Lt Yel-Yel); Glucose, Urine Negative (Negative); Ketones,Urine Negative (Negative); Leukocyte Esterase,Urine Positive (Negative); Nitrite,Urine Negative (Negative); Protein,Urine 1+ (Neg - Trace); RBC,Urine 1909 /hpf (0-3); Specific Gravity,Urine 1.022 (1.001-1.035); Squamous Epithelial Cell,Urine 2 /hpf (0-5); Urobilinogen,Urine Negative mg/dL (0.0-1.0); WBC,Urine 264 /hpf (0-5)
[2024-09-28 02:04] LABS: Culture Indicated,Urine Yes
[2024-09-28] MEDS: cefTRIAXone/D5w 1gm IV premix 1 GM/50 ML BAG IV (02:46)
[2024-09-28] MEDS: metroNIDAZOLE/NS 500 MG IVPB 500 MG/100 ML BAG 100 MG IV (04:37)
--- NOTE | 2024-09-28 07:44 | ESHP_ITS ---
HPI Date of Admission 09/28/2024 Chief Complaint Chief Complaint: Right lower quadrant abdominal pain with nausea HPI 26-year-old obese female presented to the emergency department with acute onset of abdominal pain. Her pain started last night over her lower abdomen. The pain was initially intermittent. Then her pain become persistent, progressively worse and localized over right lower quadrant. She has had nausea and dry heaves but denies vomiting, fever, chills, dysuria or constipation. She denies having similar symptoms in the past. Review of Systems Constitutional Constitutional: Denies chills and Denies fever(s) Cardiovascular Cardiovascular: Denies chest pain Respiratory Respiratory: Denies cough Gastrointestinal Gastrointestinal: Reports abdominal pain, Reports nausea and Denies vomiting Genitourinary Genitourinary: Denies difficulty voiding Hematologic/Lymphatic Hematologic/Lymphatic: Denies easy bleeding and Denies easy bruising Past Medical History Surgical History OTHER SURGICAL HX: No surgeries in the past Social History SMOKING STATUS: Never smoker SUBSTANCE USE: does not use ALCOHOL: Never Meds Home Medications and Allergies Allergies Allergy/AdvReac Type Severity Reaction Status Date / Time No Known Allergies Allergy Verified 09/27/24 23:34 Exam Vital Signs Temp Pulse Resp BP Pulse Ox O2 Del Method 98.3 F 89 16 123/70 98 Room Air 09/28/24 06:06 09/28/24 06:06 09/28/24 06:06 09/28/24 06:06 09/28/24 06:06 09/28/24 06:06 Constitutional Constitutional: no acute distress Routine Respiratory Exam Respiratory: Present CTA bilaterally Routine Cardiovascular Exam Cardiovascular: Present RRR Routine Abdominal Exam Abdominal: Present soft, normoactive bowel sounds and tenderness (Right lower quadrant tenderness to palpation with guarding, no rebound tenderness or per itonitis at this time); Absent distended Results Results: Laboratory Laboratory results: results reviewed Results: Imaging CT scan - abdomen: report reviewed and image reviewed CT scan - pelvis: report reviewed and image reviewed Assessment & Plan Problem List (1) Appendicitis: Qualifiers: Appendicitis type: acute appendicitis Acute appendicitis type: unspecified acute appendicitis type Qualified Code(s): K35.80 - Unspecified acute appendicitis Status: Acute Plan Patient will be taken to the operating room for laparoscopic possible open appendectomy. Risks include but not limited to infection, bleeding, injury to bowel, bladder, surround neurovascular structures, abdominal sepsis and or abdominal abscess, need for further procedure and or operation discussed with the patient. Benefits and alternatives explained to her, all her questions answered, she agreed and consented to proceed with the operation. Quality Measures Quality Measures none
--- NOTE | 2024-09-28 08:27 | ESOP_ITS ---
Date of Procedure 09/28/24 Pre Op Diagnosis Acute appendicitis Post Op Diagnosis Acute appendicitis Procedure Laparoscopic appendectomy Findings Inflamed, dilated and hyperemic distal two thirds of the appendix Procedure Description Patient was brought into the operating room in supine position. After administration of general endotracheal anesthesia, abdomen was prepped and draped in standard surgical manner. A Veress needle was inserted through the umbilicus and pneumoperitoneum was obtained up to 15 mmHg. The Veress needle was removed and a 5 mm umbilical incision was made. A 5 mm trocar was placed and laparoscopic camera was inserted. Under direct visualization a laparoscopic camera a 5 mm trocar placed in suprapubic region and a 10 mm trocar placed in left lower quadrant. The abdomen was inspected, the cecum was identified and followed until the appendix was identified. The distal two thirds of the appendix was noted to be inflamed, dilated and hyperemic without perforation. A window was created between the appendix and mesoappendix and the appendix was divided near the appendix and cecal junction with blue Endo LÁZARO stapling device. The mesoappendix was divided with melchor Endo LÁZARO stapling device. The appendix was placed inside an Endo Catch and removed from the abdomen utilizing left lower quadrant trocar site. Abdomen and pelvis copiously and thoroughly washed and irrigated, all the fluids were suctioned and the suctioned fluid returned clear. Hemostasis was adequate and satisfactory, staple lines were intact without bleeding or any leakage. Left lower quadrant trocar sites fascial defect was closed with 0 Vicryl using Endo closure device. Instruments and trocars removed, pneumoperitoneum was evacuated and the incisions closed with 4- 0 Monocryl subcuticular fashion. Instruments, needles and sponge counts were reported to be correct ??2. Patient tolerated the procedure well, was extubated , breathing spontaneously and without difficulty and was transferred to postanesthesia care in stable condition. Anesthesia GETA and local Pathology / specimen Other (Appendix) Estimated Blood Loss 5 Condition Stable Disposition PACU Surgeon Breanne Roberts MD Surgical Staff Operation Date: 09/28/24 08:00 <No data on this case meets the specified criteria>
--- NOTE | 2024-09-28 08:40 | SUR.PHASEI ---
0840: Pt. AAOx4, vitals stable, breathing unlabored, complaint of pain, will give pain medication, no complaint of nausea, x3 dermabond sites to ABD CDI, no active bleed noted, report received from MD Abdullahi and Kemar LÓPEZ.
[2024-09-28] MEDS: fentaNYL CIT INJ 50 mCg/ML AMP 2ML IVP ×2 (08:47→08:56)
--- NOTE | 2024-09-28 09:45 | SUR.PHASEII ---
0945: Pt. AAOx4, vitals stable, breathing unlabored, complaint of slight pain, pt. stated it is at a tolerable level, no complaint of nausea, x3 dermabond sites to ABD CDI, no active bleed noted, pt. tolerated sips of water well, pt. ambulated to wheelchair with steady gait and no assist, no complications. Gave discharge instructions to the pt. and her ride, both verbalized understanding and had no further questions. Pt. left with all personal belongings.
== END 2024-09-28 09:45 | disposition home or self-care (01) ==
LOC: SERX 09-28 04:24 → S2EX 09-28 07:30
PROVIDERS: Emergency Provider Emergency Medicine; PCP Family Medicine; Referring Provider Surgery; Visit Provider Surgery
PROC: 0DTJ4ZZ Resection of Appendix, Percutaneous Endoscopic Approach (ICD-10-PCS; CPT 44970; principal; 2024-09-28 08:00)
DX: K35.80 Unspecified acute appendicitis (principal); N39.0 Urinary tract infection, site not specified; E66.9 Obesity, unspecified; Z68.38 Body mass index [BMI] 38.0-38.9, adult
CPT/HCPCS: 44970; 36415; 74176; 76830; 80053; 81001; 82248; 83735; 84439; 84443; 84703; 85025; 85610; 85730; 86850; 86900; 86901; 87077; 87086; 96361; 96365; 96367; 96375; 99285; A4217; A4649; J0131; J0694; J0696; J1100; J1885; J2405; J2704; J3010; J3490; J7030; J1836

== ENCOUNTER 2024-09-30 21:50 | Emergency (ER) | payer MEDICAID, SELFPAY ==
[2024-09-30 21:51] VITALS: BMI 38.2
[2024-09-30 22:53] VITALS: BP 119/78; PULSE 89; RESP 18; TEMP 36.8; O2SAT 99
--- NOTE | 2024-09-30 23:16 | PD.EDABDPN ---
ED Abdominal Pain RME/HPI General Chief Complaint: Abdominal Pain Stated complaint: ABD PAIN AFTER APPEX REMOVAL ON SATURDAY Time seen by provider: 09/30/24 22:59 Arrival date/time: 09/30/24 21:50 18F with history of appendectomy 2 days ago presents to ED with ab pain. Patient was sent [employer], but was unable to pick it up. Patient denies N/V and has had normal urination and BMs. Limitations: no limitations Related Data Previous Rx's ?Medication ?Instructions ?Recorded ferrous sulfate 324 mg (65 mg 324 mg PO TID #90 tabs 03/14/24 iron) tablet,delayed release docusate sodium 100 mg capsule 100 mg PO BID #40 caps 09/28/24 (Colace) hydrocodone 5 mg-acetaminophen 325 1 tab PO Q6H PRN pain (scale score 09/28/24 mg tablet 7-10) #10 tabs ibuprofen 600 mg tablet 600 mg PO Q8H PRN pain (scale 09/28/24 score 4-6) #15 tabs hydrocodone 5 mg-acetaminophen 325 1 tab PO BID PRN pain #10 tabs 09/30/24 mg tablet Allergies Allergy/AdvReac Type Severity Reaction Status Date / Time No Known Allergies Allergy Verified 09/27/24 23:34 Review of Systems Review of Systems Systems Reviewed: All systems reviewed, normal except as documented Constitutional Constitutional: Reports system reviewed and no additional complaints, except as documented, Denies fever(s) and Denies headache(s) ENT Ears, Nose, Mouth, and Throat: Denies disequilibrium and Denies headache(s) Cardiovascular Cardiovascular: Reports system reviewed and no additional complaints, except as documented, Denies chest pain and Denies dyspnea Respiratory Respiratory: Reports system reviewed and no additional complaints, except as documented, Denies cough and Denies dyspnea Gastrointestinal Gastrointestinal: Reports system reviewed and no additional complaints, except as documented, Reports as per HPI, Reports abdominal pain, Denies nausea and Denies vomiting Neurologic Neurologic: Reports system reviewed and no additional complaints, except as documented, Denies confusion, Denies disequilibrium and Denies headache(s) Psychiatric Psychiatric: Denies confusion Past Medical History Past Medical History NEUROLOGIC: Negative Seizures CARDIAC: Negative Congestive Heart Failure RESPIRATORY: Negative Chronic Obstructive Pulmonary Disease (COPD) GENITOURINARY: Negative Renal Disease ENDOCRINE: Negative Diabetes Mellitus Type 1 or Diabetes Mellitus Type 2 HEMATOLOGIC: Positive Anemia OTHER HISTORY: Negative Blood Transfusions or Anesthesia Reactions Social History SMOKING STATUS: Never smoker SUBSTANCE USE: does not use ED Exam General Limitations: Present no limitations General appearance: Present alert and in no apparent distress Head Head exam: Present atraumatic Eye Eye exam: Present normal appearance, PERRL and EOMI ENT ENT exam: Present normal exam, normal oropharynx and mucous membranes moist Neck Neck exam: Present normal inspection, full ROM and trachea midline Chest Chest inspection: Present normal inspection and symmetric chest wall rise Respiratory Respiratory exam: Present normal lung sounds bilaterally Cardiovascular Cardiovascular exam: Present regular rate, normal rhythm and normal heart sounds Abdominal Exam Abdominal exam: Present soft and normal bowel sounds Extremities Exam Extremities exam: Present normal inspection and full ROM Back Exam Back exam: Present normal inspection and full ROM Neurological Exam Neurological exam: Present alert, oriented X3 and CN II-XII intact Psychiatric Psychiatric exam: Present normal affect and normal mood Skin Skin exam: Present warm, dry, intact and normal color Course Quality Measures none Orders Category Date Time Status HYDROcodone*/APAP 5/325 [[employer] 5/325] Med 09/30/24 23:02 Discontinued 1 tab PO X1 ONE Vital Signs Vital signs: Vital Signs Temperature 98.3 F 09/30/24 22:53 Pulse Rate 89 09/30/24 22:53 Respiratory Rate 18 09/30/24 22:53 Blood Pressure 119/78 09/30/24 22:53 Pulse Oximetry (%) 99 09/30/24 22:53 Oxygen Delivery Method Room Air 09/30/24 22:53 O2 at 99% on RA and WNLs Abdominal Pain MDM MDM Narrative MDM Narrative:: 18F with history of appendectomy 2 days ago presents to ED with ab pain. Patient was sent [employer], but was unable to pick it up. Patient denies N/V and has had normal urination and BMs. Physical exam reveals well-appearing female. Patient is afebrile, calm, and alert. Meds and appliance counselor given. Patient data External records reviewed:: [facility] previous records Clinical information provided by:: patient Social determinants that could affect healthcare access:: none Patient has the following chronic illnesses:: none How is presenting disease/condition affected by chronic disease/condition?: no chronic disease Evaluation data The following diagnostics were reviewed and interpreted by me:: other (specify) (none) Lab and/or radiology exams considered but not ordered:: not ordered Interpretation Summary: n/a Medications / Prescriptions Medications or Prescriptions considered but not ordered:: ordered Medication administrations:: Medication Administration History Discontinued Medications Hydrocodone Bitart/Acetaminophen (Hydrocodone/Apap 5/325 Tablet) 1 tab PO X1 ONE Stop: 09/30/24 23:03 above Consultations Consultation(s) initiated? (list below): No Diagnosis Differential diagnosis abdominal pain: abdominal pain, acute appendicitis, calculus of kidney, constipation, diverticulitis, endometriosis, gastroenteritis, pancreatitis, small bowel obstruction and other (postop pain) Most likely diagnosis given after review of the tests above:: postop pain Admission Indicated Admission indicated?: not indicated Admission Request Was there a request for admission?: No Disposition Plan Disposition Plan: Discharge Discharge Attestation Discharge Attestation: The patient and all family members were given an opportunity to ask questions and understood the discharge instructions. Discharge instructions specifically effects, indications for sooner follow up or return to the emergency department, and the expected course of current diagnosis. Patient condition: Stable Discharge Plan Plan Patient Disposition: HOME (Self Care) Discharge Disposition comment: Stable Prescriptions/Referrals Prescriptions/Med Rec: New hydrocodone-acetaminophen 5-325 mg tablet 1 tab PO BID MDD 2 PRN (Reason: pain) Qty: 10 0RF No Action ferrous sulfate 324 mg (65 mg iron) tablet,delayed release (DR/EC) 324 mg PO TID Qty: 90 0RF docusate sodium [Colace] 100 mg capsule 100 mg PO BID Qty: 40 0RF ibuprofen 600 mg tablet 600 mg PO Q8H PRN (Reason: pain (scale score 4-6)) Qty: 15 0RF hydrocodone-acetaminophen 5-325 mg tablet 1 tab PO Q6H MDD 4 PRN (Reason: pain (scale score 7-10)) Qty: 10 0RF Referrals: Temporary Provider,ED [Primary Care Provider] - In 1 week Problem List Clinical Impression: Postoperative pain Patient/Caregiver Discharge Instructions Education Materials: Managing Post-Op Pain at Home Additional Instructions: Please follow-up with PCP within 24-48 hours and return immediately if symptoms worsen. Print Language: Albanian Stand Alone Forms: Patient Portal Info Letter GHASSAN/ROXI Supervising Physician GHASSAN/ROXI Supervising Physician: Dr. Burgos
[2024-09-30] MEDS: HYDROcodone/APAP 5/325 TABLET 1 TAB PO (23:20)
== END 2024-09-30 23:27 | disposition home or self-care (01) ==
LOC: SERX 23:25
PROVIDERS: Emergency Provider Emergency Medicine; PCP Family Medicine
DX: G89.18 Other acute postprocedural pain (principal); R10.9 Unspecified abdominal pain
CPT/HCPCS: 99283; A9270